=== PATIENT | female | born 1930 | race Caucasian/White ===

== ENCOUNTER 2019-09-22 13:33 | Emergency (ER) | payer MEDICARE, MEDICAID ==
[~2019-09-22] VITALS: Ht 157.5 cm; Wt 65.8 kg
[2019-09-22] MEDS ORDERED: LEVOTHYROXINE75 MCG PO (13:56)
--- OUTSIDE RECORDS SUMMARY | 2019-09-22 15:56 | XMS ---
PreManage Notification: ABEL MCKEON [employer] Events No recent Security Events currently on file CRITERIA MET - [facility] - 2 Visits in 30 Days CARE PROVIDERS Georgiana Kenney Nurse Practitioner: Family Caitlyn INFANTE-Billy PHONE: [phone] Colette has no Care Guidelines for this patient. [facility] VISIT COUNT (12 MO.) [address] TOTAL 2 NOTE: Visits indicate total known visits. ED/UCC VISIT TRACKING (12 MO.) 09/22/2019 13:34 [facility] [place] TYPE: Emergency COMPLAINT: - FOOT PAIN 09/21/2019 18:13 [facility] [place] TYPE: Emergency DIAGNOSES: - Pain in right foot - feet pain - Pain in left foot INPATIENT VISIT TRACKING (12 MO.) No inpatient visits to display in this time frame [email or web address]
[2019-09-22] MEDS ORDERED: NAPROSYN500 MG PO (17:16)
== END 2019-09-22 17:50 | disposition home or self-care (01) ==
LOC: ED 13:33
DX: S93.602A Unspecified sprain of left foot, initial encounter (principal); S93.601A Unspecified sprain of right foot, initial encounter; E03.9 Hypothyroidism, unspecified; Z87.891 Personal history of nicotine dependence; Z79.899 Other long term (current) drug therapy; X50.1XXA Overexertion from prolonged static or awkward postures, initial encounter
CPT/HCPCS: 73630; 99283-25